=== PATIENT | female | born 1935 | race African-American/Black ===

== ENCOUNTER 2016-09-29 00:01 | Emergency (ER) | payer MEDICARE ==
[~2016-09-29] VITALS: Ht 157.5 cm; Wt 54.4 kg
[~2016-09-29 00:01] MED LIST: ALPR0.5T6 PO; AMIO200T2 PO; AMLO5TAB2 PO; ASPI-482 PO; ATOR40TA59 PO; CARV12.52 PO; CLOP75TA PO; DICL100G18 TP; DOCU100C28 PO; DONE10TA7 PO; DONE5TAB56 PO; ENAL10TA PO; FERR-26 PO; FLUT1DIS3 IH; FURO-68 PO; FURO20TA3 PO; GABA-586 PO; HYDR-2762 PO; INSU100I17 SQ; ISOS30TA4 PO; ISOS60TA2 PO; LEVO500T59 PO; LISI-334 PO; LISI10TA2 PO; MELA3TAB2 PO; METH4TAB2 PO; METO100T2 PO; MONT10TA9 PO; NITR0.4T SL; OMEP20CA9 PO; OMEP20TA8 PO; POTA20TA12 PO; RISP1TAB3 PO; SERT100T8 PO; TICA90TA PO; VENL37.57 PO
[2016-09-29 01:00] LABS: BILIRUBIN,URINE NEGATIVE (NEG); GLUCOSE,URINE NEGATIVE (NEG); NITRITE,URINE NEGATIVE (NEG); PH,URINE 5.5; PROTEIN,URINE NEGATIVE (NEG-TRACE)
[2016-09-29 01:07] LABS: BARBITURATES NEG (NEG); BENZODIAZEPINES POS (NEG); CANNABINOIDS NEG (NEG); COCAINE NEG (NEG); METHADONE NEG (NEG); OPIATES NEG (NEG); PHENCYCLIDINE NEG (NEG)
[2016-09-29 01:12] LABS: BACTERIA,URINE 0 /HPF (0-FEW); RBC,URINE OCC /HPF (0-2); SQUAMOUS EPITHELIAL CELL,UR FEW /LPF; WBC,URINE OCC /HPF (0-4)
--- NOTE | 2016-09-29 01:30 | PHYS DOC ---
Past Medical History Past Medical History: Anxiety, Arrhythmia, CAD, CHF, COPD, Depression, Diabetes -Type II, GERD, High Cholesterol, Hypertension, RI, Other Additional Past Medical Histor: CHRONIC BACK PAIN, Dementia Past Surgical History: Coronary Bypass Surgery, Hysterectomy, Knee Replacement , Pacemaker, Other Additional Past Surgical Histo: cardiac stents, left shoulder repair Alcohol Use: None Drug Use: None Adult General Chief Complaint Chief Complaint: ALTERED MENTAL STATUS HPI HPI Patient is a 81 year old female with advanced dementia on home hospice who presents by EMS for altered mental status. She took night time meds (including a sleep aid) and woke tonight with a cough. tried to check on her, but noted she was more sleepy than usual. Her cough stopped, but she was still too sleepy, so he called EMS for evaluation. Hospice has not been notified; per discussion with family. They would like evaluation and then to discuss disposition prior to calling hospice. Patient does not participate with history. Family notes current baseline is bed bound or chair bound and verbally communicates. Review of Systems Review of Systems Unable to obtain secondary to clinical status. Allergies Allergies Allergies Coded Allergies Type Severity Reaction Last Updated Verified cyclobenzaprine HCl Allergy Intermediate 12/01/14 Yes Physical Exam Physical Exam Constitutional: Well developed, well nourished, no acute distress, non-toxic appearance. [] HENT: Normocephalic, atraumatic, bilateral external ears normal, oropharynx moist, no oral exudates, nose normal. [] Eyes: PERRLA, EOMI, conjunctiva normal, no discharge. [] Neck: Normal range of motion, no tenderness, supple, no stridor. [] Cardiovascular:Heart rate regular rhythm [] Lungs & Thorax: Bilateral breath sounds clear to auscultation [] Abdomen: Bowel sounds normal, soft, no tenderness. [] Skin: Warm, dry, no erythema, no rash. [] Back: No tenderness, no CVA tenderness. [] Extremities: No tenderness, ROM intact, no edema. [] Neurologic: Sleepy but sometimes spontaneously arouses, moves upper extremities equally, moves lower extremities to pain. [] Psychologic: Unable to assess secondary to clinical status. [] Current Patient Data Vital Signs Vital Signs Date Time Temp Pulse Resp B/P (MAP) Pulse Ox O2 Delivery O2 Flow Rate FiO2 09/29/16 00:30 97.7 66 16 130/91 (104) 100 Nasal Cannula 2.5 97.7 Lab Values Laboratory Tests Test 09/29/16 00:32 09/29/16 01:15 Urine Collection Type U cath Urine Color Yellow Urine Clarity Clear Urine pH 5.5 Urine Specific [place] 1.015 Urine Protein Negative mg/dL (NEG-TRACE) Urine Glucose (UA) Negative mg/dL (NEG) Urine Ketones (Stick) Negative mg/dL (NEG) Urine Blood Negative (NEG) Urine Nitrite Negative (NEG) Urine Bilirubin Negative (NEG) Urine Urobilinogen Dipstick 1.0 mg/dL (0.2 mg/dL) Urine Leukocyte Esterase Negative (NEG) Urine RBC Occ /HPF (0-2) Urine WBC Occ /HPF (0-4) Urine Squamous Epithelial Cells Few /LPF Urine Amorphous Sediment Present /HPF Urine Bacteria 0 /HPF (0-FEW) Urine Hyaline Casts Many /HPF Urine Opiates Screen Neg (NEG) Urine Methadone Screen Neg (NEG) Urine Barbiturates Neg (NEG) Urine Phencyclidine Screen Neg (NEG) Urine Amphetamine/Methamphetamine Neg (NEG) Urine Benzodiazepines Screen Pos (NEG) Urine Cocaine Screen Neg (NEG) Urine Cannabinoids Screen Neg (NEG) Urine Ethyl Alcohol Neg (NEG) White Blood Count 9.8 x10^3/uL (4.0-11.0) Red Blood Count 5.47 x10^6/uL (3.50-5.40) H Hemoglobin 12.8 g/dL (12.0-15.5) Hematocrit 41.6 % (36.0-47.0) Mean Corpuscular Volume 76 fL (79-100) L Mean Corpuscular Hemoglobin 24 pg (25-35) L Mean Corpuscular Hemoglobin Concent 31 g/dL (31-37) Red Cell Distribution Width 24.9 % (11.5-14.5) H Platelet Count 114 x10^3/uL (140-400) L Neutrophils (%) (Auto) 78 % (31-73) H Lymphocytes (%) (Auto) 10 % (24-48) L Monocytes (%) (Auto) 10 % (0-9) H Eosinophils (%) (Auto) 1 % (0-3) Basophils (%) (Auto) 1 % (0-3) Neutrophils # (Auto) 7.6 x10^3uL (1.8-7.7) Lymphocytes # (Auto) 1.0 x10^3/uL (1.0-4.8) Monocytes # (Auto) 1.0 x10^3/uL (0.0-1.1) Eosinophils # (Auto) 0.1 x10^3/uL (0.0-0.7) Basophils # (Auto) 0.1 x10^3/uL (0.0-0.2) Platelet Estimate Pending Sodium Level 139 mmol/L (136-145) Potassium Level 4.3 mmol/L (3.5-5.1) Chloride Level 101 mmol/L (98-107) Carbon Dioxide Level 27 mmol/L (21-32) Anion Gap 11 (6-14) Blood Urea Nitrogen 27 mg/dL (7-20) H Creatinine 1.3 mg/dL (0.6-1.0) H Estimated GFR (Cockcroft-Gault) 47.6 BUN/Creatinine Ratio 21 (6-20) H Glucose Level 146 mg/dL (70-99) H Calcium Level 9.6 mg/dL (8.5-10.1) Total Bilirubin 0.9 mg/dL (0.2-1.0) Aspartate Amino Transferase (AST) 30 U/L (15-37) Alanine Aminotransferase (ALT) 24 U/L (14-59) Alkaline Phosphatase 143 U/L (46-116) H Total Protein 6.5 g/dL (6.4-8.2) Albumin 3.3 g/dL (3.4-5.0) L Albumin/Globulin Ratio 1.0 (1.0-1.7) Laboratory Tests 09/29/16 01:15 Laboratory Tests 09/29/16 01:15 EKG EKG EKG as interpreted by me as normal sinus rhythm, rate 70, no ST-T changes, MD 214, QTc 504, PVCs Radiology/Procedures Radiology/Procedures Chest xray as interpreted by me with no acute cardiopulmonary disease process CT head without contrast IMPRESSION: Motion limits evaluation with portions of brain obscured. 1. No large hemorrhage is seen within limits of this exam. 2. Scattered regions of low attenuation within the white matter. Non-specific in nature but frequently secondary to chronic small vessel ischemic disease. 3. Prominence of ventricles and sulci which is frequently secondary to age related volume loss. Electronically signed by: Vasyl Winn MD (09/29/2016 1:56 AM) Course & Med Decision Making Course & Med Decision Making Pertinent Labs and Imaging studies reviewed. (See chart for details) Workup is unremarkable. She has been sleeping and intermittently wakes, but has been calm. No coughing or agitation. Family would prefer that she be discharged home for further observation. She will be sent via EMS. Return precautions given. Family understands and agrees with plan. Dragon Disclaimer Dragon Disclaimer This electronic medical record was generated, in whole or in part, using a voice recognition dictation system. Departure Departure Impression: Primary Impression: Altered mental status Disposition: 01 HOME, SELF-CARE Condition: STABLE Referrals: MERRITT PALOMINO MD (PCP) Patient Instructions: Medical Screening Exam Additional Instructions: Follow up with your primary care doctor. Return for any concerns. Problem Qualifiers Primary Impression: Altered mental status Altered mental status type: unspecified Qualified Codes: R41.82 - Altered mental status, unspecified Bar HOPPER MD Sep 29, 2016 01:30
[2016-09-29 01:44] LABS: BASO # 0.1 x10^3/uL (0.0-0.2); BASO % 1 % (0-3); EOS % 1 % (0-3); HEMATOCRIT 41.6 % (36.0-47.0); HEMOGLOBIN 12.8 g/dL (12.0-15.5); LYMPH % 10 % (24-48); MEAN CORPUSCULAR HEMOGLOBIN 24 pg (25-35); MEAN CORPUSCULAR HGB CONC 31 g/dL (31-37); MEAN CORPUSCULAR VOLUME 76 fL (79-100); MONO % 10 % (0-9); NEUT % 78 % (31-73); PLATELET COUNT 114 x10^3/uL (140-400); RED BLOOD COUNT 5.47 x10^6/uL (3.50-5.40); RED CELL DISTRIBUTION WIDTH 24.9 % (11.5-14.5); WHITE BLOOD COUNT 9.8 x10^3/uL (4.0-11.0)
[2016-09-29 01:55] LABS: CALCIUM 9.6 mg/dL (8.5-10.1); CREATININE 1.3 mg/dL (0.6-1.0); GFR 47.6; POTASSIUM 4.3 mmol/L (3.5-5.1)
[2016-09-29 02:00] LABS: ALBUMIN 3.3 g/dL (3.4-5.0); TOTAL BILIRUBIN 0.9 mg/dL (0.2-1.0); TOTAL PROTEIN 6.5 g/dL (6.4-8.2)
--- NOTE | 2016-09-29 02:00 | RAD ---
INDICATION: AMS COMPARISON: August 07, 2014 TECHNIQUE: Axial CT images obtained through the head without intravenous contrast. One or more of the following individualized dose reduction techniques were utilized for this examination: 1. Automated exposure control; 2. Adjustment of the mA and/or kV according to patient size; 3. Use of iterative reconstruction technique. FINDINGS: No intracranial hemorrhage. No midline shift. Basal cisterns patents. Ventricles and sulci are globally prominent. No acute osseous abnormality. Orbits and paranasal sinuses unremarkable. Scattered foci of low attenuation within the white matter. IMPRESSION: Motion limits evaluation with portions of brain obscured. 1. No large hemorrhage is seen within limits of this exam. 2. Scattered regions of low attenuation within the white matter. Non-specific in nature but frequently secondary to chronic small vessel ischemic disease. 3. Prominence of ventricles and sulci which is frequently secondary to age related volume loss. Electronically signed by: Vasyl Winn MD (09/29/2016 1:56 AM)
[2016-09-29 02:35] VITALS: BP 132/91
[2016-09-29 03:51] LABS: ANISOCYTOSIS MOD; HYPOCHROMIA SLIGHT; PLT ESTIMATE DECREASED (ADEQUATE); POLYCHROMASIA SLIGHT
--- NOTE | 2016-09-29 06:09 | EKG ---
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
--- NOTE | 2016-09-29 07:24 | RAD ---
Portable chest, 09/29/2016: History: Altered mental status Comparison is made to a study from 11/19/2015. The patient is rotated to the left. A left-sided transvenous pacemaker remains in place with 2 leads extending into the right heart. There has been a previous median sternotomy. The heart is enlarged. There is calcific plaquing of the aorta. The pulmonary vascularity is within normal limits. No pulmonary infiltrate is seen. There is no evidence of pleural fluid. The bony structures are demineralized. There is an old fracture of the right sixth rib posterolaterally. Postsurgical change is noted at the left shoulder. IMPRESSION: 1. Cardiomegaly. 2. No acute abnormality is detected.
== END 2016-09-29 03:12 | disposition home or self-care (01) ==
LOC: ER 00:01
DX: R41.82 Altered mental status, unspecified (principal); R05 Cough; F41.9 Anxiety disorder, unspecified; I25.10 Atherosclerotic heart disease of native coronary artery without angina pectoris; I11.0 Hypertensive heart disease with heart failure; I50.9 Heart failure, unspecified; J44.9 Chronic obstructive pulmonary disease, unspecified; F32.9 Major depressive disorder, single episode, unspecified; K21.9 Gastro-esophageal reflux disease without esophagitis; E78.00 Pure hypercholesterolemia, unspecified; I25.2 Old myocardial infarction; E11.9 Type 2 diabetes mellitus without complications; F03.90 Unspecified dementia, unspecified severity, without behavioral disturbance, psychotic disturbance, mood disturbance, and anxiety; G89.29 Other chronic pain; Z95.1 Presence of aortocoronary bypass graft; Z95.5 Presence of coronary angioplasty implant and graft; Z90.710 Acquired absence of both cervix and uterus; Z95.0 Presence of cardiac pacemaker; Z96.659 Presence of unspecified artificial knee joint; Z88.8 Allergy status to other drugs, medicaments and biological substances
CPT/HCPCS: 36415; 51701; 70450; 71010; 80053; 80305; 80320; 81001; 85007; 85027; 93005; G0481; 99285-25